=== PATIENT | female | born 1955 | race Caucasian/White ===

== ENCOUNTER 2024-10-01 09:34 | Outpatient (CLI) | payer MEDICARE, SELFPAY ==
[2024-10-01 10:26] LABS: Anion Gap 7 mmol/L (4-12); Blood Urea Nitrogen 15 mg/dL (7-17); Calcium 10.2 mg/dL (8.4-10.2); Carbon Dioxide 33 mmol/L (22-30); Chloride 100 mmol/L (98-107); Estimated Glomerular Filt Rate > 60; Glucose 100 mg/dL (65-110); Potassium 3.9 mmol/L (3.4-5.0); Sodium 140 mmol/L (137-145)
--- OUTSIDE RECORDS SUMMARY | 2024-10-01 10:42 | XMS_ITS | Data Portability ---
Author Organization [facility] Address [address] [place] [address] Assessment No assessment recorded. Plan of Treatment Reminders Order Date Submit Date Provider Last Modified By Organization Details Last Modified Time Details Appointments SURG Hysterosc opy 2024 11:00A Kayla PARK MD Not available Not available Not available SURG POST OP 2024 11:00A Kayla PARK MD Not available Not available Not available Lab None recorded. Referral None recorded. Procedures None recorded. Surgeries dilation and curettage with hysterosc opy (SURG) 2023 025 [facility], [address], [place], [address], 08/06/2024 11:33:44 Imaging None recorded. Medication Orders None recorded. Patient TargetsNo targets recorded. Patient InstructionsNo instructions recorded. Reason for Referral None Reported. Results Created Date Observation Date Name Description Value Unit Range Abnormal Flag Note LastModifiedBy Organization Detail LastModifiedTime 07/02/2007/02/2024 IMAGE GUIDE D PAP AND HPV REGAR DLESS image guided Pap, HPV regardless of Pap result SEE RESULT S BELOW CASE REPOR T: Cytol ogy Gynec ologi anisa Repor t Case: [id number] Autho speedy cerrato Provi matthew: Summer Montoya MD Colle cted: 07/02 1209 Order ing Locat ion: [place] Patho logy Recei keke: 07/03 0154 First Scree n: Seema Nagy ay, CT Speci men: Scree lui Pap - Image d, Cervi x STATE MENT OF ADEQU ACY: Satis facto ry for evalu ation Trans forma tion zone compo nent absen t ----- ----- ----- ----- ----- ----- ----- ----- ----- ----- ----- ----- ----- ----- ----- ----- ----- ---- FINAL DIAGN OSIS: Negat raquel for Intra epith elial Vadim larson or Kalyn kirkpatirck (NIL) . Elect avril antonio by Seema Nagy , CT on 07/12 at 0925 WIG COMBER ----- ----- ----- ----- ----- ----- ----- ----- ----- ----- ----- ----- ----- ----- ----- ----- ----- ---- HPV RESUL TS: HPV mRNA E6/E7 : No HPV mRNA Detec elif NOTE: This high risk HPV mRNA assay detec ts fourt een high- risk HPV types (16, 18, 31, 33, 35, 39, 45, 51, 52, 56, 58, 59, 66, 68) witho ut diffe renti ation . COMME NT: This speci men was revie wed by a Cytot echno logis t and/o r Patho logis t (as indic ated in this repor t) after evalu ation using the Thinp rep Imagi ng Syste m. CLINI ANISA INFOR MATIO N: Menst rual Statu s: LMP (if appli cable ): Clini anisa Histo ry/Pr eviou s Pap: Type of Neopl nacho (if appli cable ): Signi fican t Clini anisa Findi ngs: Other Histo ry: Hormo margarito (if appli cable ): PAP EDUCA ALBERT L NOTE: The Pap Test is a scree lui test with an inher ent false negat raquel rate. Liqui d-bas ed sampl ing november decre ase, but will not elimi perez, false negat raquel resul ts. A negat raquel resul t does not precl ude the prese nce and/o r devel opmen t of disea se, since the prese nce of abnor mal cells in the sampl e depen ds on the locat ion of the lesio n and sampl ing techn ique. Brit nued regul ar scree lui is the best metho d of cance r preve ntion . If repor elif cytol ogic findi ng do not corre late with physi anisa and/o r histo rical findi ngs, furth er inves tigat ion is recom archie d, as clini mickie lara nted. Not Available [facility] (Lab) [address], [place], [address], 07/12/2024 10:29:55 Result Notes None recorded. Procedures Surgical History Date Name Laterality Status Provider Name and Address Organization Details Recorded Time 07/02/20 24 Endometrial Biopsy completed ANNY PARK MD [address], [place], [address], [facility] 07/03/2024 16:08:37 07/18/19 23 Date of Last Mammogram completed [facility] 07/02/2024 11:34:14 07/18/19 23 Most Recent Bone Density completed [facility] 07/02/2024 11:34:40 07/18/19 17 procedure on shoulder completed [facility] 07/02/2024 11:25:17 02/19/19 85 section completed [facility] 07/02/2024 11:24:34 01/03/19 82 section completed [facility] 07/02/2024 11:24:28 08/12/18 79 section completed [facility] 07/02/2024 11:24:21 12/22/18 77 section completed Modestaakanksha Masten [facility] 07/02/2024 11:24:15 Carpal tunnel surgery completed Modesta Masten [facility] 07/02/2024 11:24:55 Imaging Results None recorded. Procedure Notes None recorded. Medical Equipment None Reported. Allergies Allergen ID Allergen Name Allergen Category Reaction Reaction Severity Criticality Documentation Date Start Date Code Code System Note Provider Name and Address Organization Details Recorded Time nickel environme nt Not available Not available Not available 07/02/2024 57415 29 RxNorm Modesta Gamino ahmet, [facility] 4 11:18:46 Medications Name Sig Start Date Stop Date Status Note LastModified by Organization Details LastModified Time tramadol 50 mg tablet 07/02 completed Not Available Not Available Not Available simvastatin 40 mg tablet TAKE 1 TABLET BY MOUTH DAILY active Not Available Not Available No t Available losartan 100 mg-hydrochl orothiazide 25 mg tablet TAKE 1 TABLET BY MOUTH DAILY active Not Available Not Available No t Available clotrimazol e-betametha sone 1 %-0.05 % topical cream APPLY TOPICALLY TO THE AFFECTED AND SURROUNDI NG AREAS TWICE DAILY IN THE MORNING AND IN THE EVENING 07/02 completed Not Available Not Available Not Available bupropion HCl XL 150 mg 24 hr tablet, extended release TAKE 1 TABLET BY MOUTH DAILY active Not Available Not Available No t Available naproxen active Not Available Not Avai lable Not Available Sudafed active Not Available Not Avail able Not Available Vitamin D3 active Not Available Not Av ailable Not Available Vitals Date Recorded Body weight Body mass index (BMI) Body height Systolic blood pressure Diastolic blood pressure Provider Name and Address Organization Details Last Updated DateTime 07/02/2024 197069.5 7 g 48.7 kg/m2 157.48 cm 146 mm[Hg] 84 mm[Hg] Modestaakanksha Masten [facility] 4 11:31:59 Social History Question Answer Notes LastModified by Organizat ion Details LastModified Time Tobacco Smoking Status Former Smoker [facility] 07/02/2024 11:35:14 Are You Blind Or Do You Have Difficulty Seeing? No [email or web address] Information n ot available 07/02/2024 In The 14 Days Before Symptom Onset, Have You Had Close Contact With A Laboratory-confirm ed COVID-19 While That Case Was Ill? No [email or web address] Information n ot available 07/02/2024 In The 14 Days Before Symptom Onset, Have You Had Close Contact With A Person Who Is Under Investigation For COVID-19 While That Person Was Ill? No [email or web address] Information not available 07/02/2024 Have You Been To An Area Known To Be High Risk For COVID-19? No [email or web address] Information not available 07/02/2024 Are You Deaf Or Do You Have Serious Difficulty Hearing? No [email or web address] Information not available 07/02/2024 Do You Use Your Seat Belt Or Car Seat Routinely? Yes [email or web address] Information not available 07/02/2024 Do You Have Smoke And Carbon Monoxide Detectors In Your Home? Yes [email or web address] Information not available 07/02/2024 Do You Use Any Illicit Or Recreational Drugs? No Information not available 07/02/2024 Do You Use Sunscreen Routinely? Yes [email or web address] Information not available 07/02/2024 Sex: Unknown Functional Status Question Answer Note LastModified by Organizat ion Details LastModified Time Do you have difficulty walking or climbing stairs? No [email or web address] Information not available 07/02/2024 Are you able to walk? YESWOREST [email or web address] Information not available 07/02/2024 Are you able to care for yourself? Yes [email or web address] Information not available 07/02/2024 Do you have difficulty dressing or bathing? No [email or web address] Information not available 07/02/2024 Mental Status None recorded. Family History Relationship Description Onset Age of this Age Resolved Age Notes LastModified by Organization Details LastModified Time Father Heart disease [email or web address] Not available 2023 11:22:18 Father Diabetes mellitus Not available 2023 11:22:27 Father Hypercholest erolemia [email or web address] Not available 2023 11:22:46 Father Hypertensive disorder [email or web address] Not available 2023 11:23:06 Father Malignant tumor of lung [email or web address] Not available 2023 11:23:25 Mother Hypercholest erolemia [email or web address] Not available 2023 11:22:46 Mother Hypertensive disorder [email or web address] Not available 2023 11:23:06 Brother Hypertensive disorder [email or web address] Not available 2023 11:23:06 Medical History No medical history recorded. Gynecological History Statement/Question Response Abnormal Pap N Date of Last Mammogram 07/18/2022 Most Recent Bone Density 07/18/2022 Date of DEXA bone scan 07/18/2022 STIs/STDs N Age of first menstrual cycle 13 HPV Vaccine N Date of Last Pap Smear Sexual Problems? N Current Control Method Menopause LMP Unknown Obstetrics History GPAL:G 4 P 4 0 0 4 Type Value Full Term 4 Living 4 Total 4 Past Encounters Encounter ID Performer Location Encounter Start Date Encounter Closed Date Diagnosis/Indication Diagnosis SNOMED-CT Code Diagnosis ICD10 Code Diagnosis Note [id number] ANNY PARK MD [place] [address] [address] 07/02/2024 11:06:52 07/02/2024 12:29:58 Postmenopausal bleeding 52968542 N95.0 - patient reports 3-4 months of cyclic postmenopa usal bleeding From to April; no bleeding since April- outside US performed which demonstrat ed thickened endometriu m at 6mm- recommend EMB; r/b discussed with patient who would like to proceed with EMB today- unable to complete EMB due to poor visualizat ion of cervical os- pap smear collected today- will follow up on results as available- will schedule hysterosco py and D&C for endometria l sampling- discussed risks of surgery, including bleeding, infection, and injury to adjacent structures Health Concerns Section Related Observation LastModified by Organization Detai ls LastModified Time None Recorded Concern Status LastModified by Organization Details LastModified Time None Recorded Advance Directives Directive None Recorded Payers Encounter Date Sequence Insurance Name Policy Number Policy Chambers Covered Member ID Chambers Member ID Guarantor Name 07/02/2024 1 [facility] (MEDICARE REPLACEMENT/A DVANTAGE - HMO) [id number] Adriana Partida [id number] Adriana Partida Notes Date Note Type Note Provider Name and Address Organization Details Recorded Time 07/02/2024 text/html Patient presents to discuss postmenopausal spotting. She reports starting over the summer, she would have monthly spotting episodes lasting 2-3 days from December-April. No bleeding since April. She reports menopause prior to age 50. No HRT, blood thinners or other new medication. No family hx of cancer. She had an outside US that demonstrated overall normal appearing uterus and ovaries aside from thickened endometrial lining at 6mm. ANNY PARK MD [address], [place], [address], [facility] 07/03/2024 16:08:46 OBGyn Episode Ob Episode Information Episode Created Date Number of Fetuses Patient Bloodtype Patient rh Status Prepregnancy Weight lbs Domestic Partner Domestic Partner Phone Father Name Sponge Fisherman Status 07/02/20 24 1 CLOSED Fetus Data First Name Last Name Admitted to NICU Weight (g) Sex Living Outcome Pediatric Complications Fetus ID Race Codes Race Delivery Type 3628.73 6 M Full Term [id number] Primary Mateusz Calculation Initial Mateusz Date Initial Exam Date Initial Exam Provider Initial Ultrasound Date Last Menstrual Period Date Ultra Sound Weeks Gestation 0 Eighteen To Twenty Week Mateusz Update Ultra Sound Date Fundal Height At Umbil Quickening Date Ultra Sound Latest Weeks Gestation Final Mateusz Confirmed By Final Mateusz Confirmed Date Final Mateusz Date Ultra Sound Latest Days Gestation 0 0 Menstrual History Last Menstrual Date Menses Monthly On Bcp Conception Prior Menses Frequency Hcg Plus Date Menarche Onset Age Delivery Information Delivery Date Delivery Type Labor Anesthesia Weeks Gestation Incision Type Labor Labor Length Hrs Delivered By Post Complications Tubal Sterilization Discharge Date Comments 9 Discharge Information Feeding Method Contraceptive Method Maternal HG B and HCT Levels Ob Episode Information Episode Created Date Number of Fetuses Patient Bloodtype Patient rh Status Prepregnancy Weight lbs Domestic Partner Domestic Partner Phone Father Name Sponge Fisherman Status 07/02/20 24 1 CLOSED Fetus Data First Name Last Name Admitted to NICU Weight (g) Sex Living Outcome Pediatric Complications Fetus ID Race Codes Race Delivery Type 3175.14 4 M Full Term [id number] Primary Mateusz Calculation Initial Mateusz Date Initial Exam Date Initial Exam Provider Initial Ultrasound Date Last Menstrual Period Date Ultra Sound Weeks Gestation 0 Eighteen To Twenty Week Mateusz Update Ultra Sound Date Fundal Height At Umbil Quickening Date Ultra Sound Latest Weeks Gestation Final Mateusz Confirmed By Final Mateusz Confirmed Date Final Mateusz Date Ultra Sound Latest Days Gestation 0 0 Menstrual History Last Menstrual Date Menses Monthly On Bcp Conception Prior Menses Frequency Hcg Plus Date Menarche Onset Age Delivery Information Delivery Date Delivery Type Labor Anesthesia Weeks Gestation Incision Type Labor Labor Length Hrs Delivered By Post Complications Tubal Sterilization Discharge Date Comments 7 Discharge Information Feeding Method Contraceptive Method Maternal HG B and HCT Levels Ob Episode Information Episode Created Date Number of Fetuses Patient Bloodtype Patient rh Status Prepregnancy Weight lbs Domestic Partner Domestic Partner Phone Father Name Sponge Fisherman Status 07/02/20 24 1 CLOSED Fetus Data First Name Last Name Admitted to NICU Weight (g) Sex Living Outcome Pediatric Complications Fetus ID Race Codes Race Delivery Type 3175.14 4 M Full Term [id number] Primary Mateusz Calculation Initial Mateusz Date Initial Exam Date Initial Exam Provider Initial Ultrasound Date Last Menstrual Period Date Ultra Sound Weeks Gestation 0 Eighteen To Twenty Week Mateusz Update Ultra Sound Date Fundal Height At Umbil Quickening Date Ultra Sound Latest Weeks Gestation Final Mateusz Confirmed By Final Mateusz Confirmed Date Final Mateusz Date Ultra Sound Latest Days Gestation 0 0 Menstrual History Last Menstrual Date Menses Monthly On Bcp Conception Prior Menses Frequency Hcg Plus Date Menarche Onset Age Delivery Information Delivery Date Delivery Type Labor Anesthesia Weeks Gestation Incision Type Labor Labor Length Hrs Delivered By Post Complications Tubal Sterilization Discharge Date Comments 2 Discharge Information Feeding Method Contraceptive Method Maternal HG B and HCT Levels Ob Episode Information Episode Created Date Number of Fetuses Patient Bloodtype Patient rh Status Prepregnancy Weight lbs Domestic Partner Domestic Partner Phone Father Name Sponge Fisherman Status 07/02/20 24 1 CLOSED Fetus Data First Name Last Name Admitted to NICU Weight (g) Sex Living Outcome Pediatric Complications Fetus ID Race Codes Race Delivery Type 3628.73 6 M Full Term [id number] Primary Mateusz Calculation Initial Mateusz Date Initial Exam Date Initial Exam Provider Initial Ultrasound Date Last Menstrual Period Date Ultra Sound Weeks Gestation 0 Eighteen To Twenty Week Mateusz Update Ultra Sound Date Fundal Height At Umbil Quickening Date Ultra Sound Latest Weeks Gestation Final Mateusz Confirmed By Final Mateusz Confirmed Date Final Mateusz Date Ultra Sound Latest Days Gestation 0 0 Menstrual History Last Menstrual Date Menses Monthly On Bcp Conception Prior Menses Frequency Hcg Plus Date Menarche Onset Age Delivery Information Delivery Date Delivery Type Labor Anesthesia Weeks Gestation Incision Type Labor Labor Length Hrs Delivered By Post Complications Tubal Sterilization Discharge Date Comments 5 Discharge Information Feeding Method Contraceptive Method Maternal HG B and HCT Levels
--- OUTSIDE RECORDS SUMMARY | 2024-10-01 10:42 | XMS_ITS | Clinical Summary ---
Author Organization [facility] Address [address] [place] [address] Care Team Providers Care Development Trainer Name Role Phone Fernando Walker MD Primary Care Provider [phone] Allergies Active Allergy Reactions Criticality Noted Date Comments Nickel Redness Low 10/20/2016 redness Nsaids (Non-Steroidal Anti-Inflammatory Drug) Stomach upset Low 10/20/2016 Stomach/GI Upset Medications simvastatin (ZOCOR) 40 mg tablet Take 1 tablet (40 mg total) by mouth daily 1 Active losartan-hydroc hlorothiazide (HYZAAR) 100-25 mg per tablet Take 1 tablet by mouth daily 1 Active buPROPion XL (WELLBUTRIN XL) 150 mg 24 hr tablet Take 1 tablet (150 mg total) by mouth daily 1 Active loratadine 10 mg capsule Take 10 mg by mouth daily Active pseudoephedrine ER (SUDAFED) 120 mg 12 hr tabletIndicatio ns:Nasal Congestion Take 1 tablet (120 mg total) by mouth every 12 (twelve) hours Active melatonin 10 mg tablet Take 1 tablet (10 mg total) by mouth nightly Active HYDROcodone-loc taminophen (NORCO) 5-325 mg per tablet Take 1-2 tablets by mouth every 6 (six) hours as needed 1 Active vit C/E/zinc ox/feng/lut/shai x (ICAPS AREDS2 ORAL) Take by mouth 2 (two) times a day Active clotrimazole-be tamethasone (LOTRISONE) cream APPLY TOPICALLY TO THE AFFECTED AND SURROUNDING AREAS TWICE DAILY IN THE MORNING AND IN THE EVENING 4 Active calcium carbonate-vitam in D3 2,500 mg (1,000 mg elemental)-800 unit tablet Take by mouth Acti ve cholecalciferol (VITAMIN D-3) 2000 unit capsule 1 capsule (2,000 Units total) Active traMADoL (ULTRAM) 50 mg tablet Take 1 tablet (50 mg total) by mouth every 6 (six) hours as needed for pain 15 tablet 4 Active Active Problems Problem Noted Date Diagnosed Date Superficial incisional infection of surgical sit e 07/13/2024 Right hand pain 06/13/2024 Trigger finger of right thumb 06/13/2024 Arthritis of carpometacarpal (CMC) joint of righ t thumb 06/13/2024 Ganglion cyst 06/13/2024 Trigger thumb of right hand 06/13/2024 Primary osteoarthritis of fi rst carpometacarpal joint of right hand 06/13/2024 KARI (obstructive sleep apnea) 11/04/2020 Assessment & Plan (05/05/2023 11:20 AM CDT): Patient continue to wear CPAP at 12 cm water pressure while sleeping. Her DME is [facility]. Assessment & Plan (05/06/2022 11:06 AM CDT): Patient will continue with CPAP therapy at 12 cm water pressure. Received order for supplies. D[facility] Assessment & Plan (02/17/2021 1:19 PM CDT): Patient continue to wear her CPAP at 12 cm water pressure while sleeping. Her DME is [facility]. Assessment & Plan (11/04/2020 2:12 PM CDT): The patient was benefiting and compliant with the CPAP unit at 12 cm water pressure. Her DME is [facility]. I will try ordering a new CPAP unit for her set at 12 cm water pressure with new supplies. Per Medicare guidelines, she may require a new nocturnal polysomnogram with a split night protocol if necessary and no MSLT. She will follow-up with me in 3 months. Status post total shoulder arthroplasty, left Encounters Date Type Department Care Team Description 09/05/2024 8:57 AM DIRECTOR OF PUBLICATIONS - 09/05/2024 11:59 PM DIRECTOR OF PUBLICATIONS Hospital Encounter [facility] Medical Office Bl 1 Breast [facility] [address] [place] [address] [address] [place] [address] Encounter for screening mammogram for malignant neoplasm of breast Discharge Disposition: Discharge to home or self care 08/03/2024 8:45 AM DIRECTOR OF PUBLICATIONS Office Visit [facility] Medical [facility] Hand Surgery [address] [place] [phone] Reece Staley MD Superficial incisional infection of surgical site (Primary Dx) 07/16/2024 7:00 AM DIRECTOR OF PUBLICATIONS Office Visit [facility] Hand Surgery [address] [place] [phone] Reece Staley MD Superficial incisional infection of surgical site (Primary Dx) 07/13/2024 6:45 AM DIRECTOR OF PUBLICATIONS Office Visit [facility] Hand Surgery [address] [place] [phone] Reece Staley MD Trigger finger of right thumb (Primary Dx); Ganglion cyst 07/09/2024 11:00 AM DIRECTOR OF PUBLICATIONS Office Visit [facility] Hand Surgery [address] [place] [phone] Reece Staley MD Ganglion cyst (Primary Dx); Trigger thumb of right hand from Last 3 Months Surgical History Surgery Date Site/Laterality Comments REVERSE TOTAL SHOULDER ARTHROPLASTY 07/18/2016 - 2017 Left STAPEDECTOMY CARPAL TUNNEL RELEASE 12/16/2020 - 01/14/2021 Bilateral SECTION x4 HAND SURGERY 06/28/2024 Right palmar mass exc, trigger release thumb Medical History Medical History Date Comments Sleep apnea, obstructive Hypertension Hyperlipidemia Family History Medical History Relation Name Comments Cancer Father Emphysema Mother Relation Name Status Comments Father Mother Social History Tobacco Use Types Packs/Day Years Used Date Smoking Tobacco: Former Cigarettes Smokeless Tobacco: Never Tobacco Cessation:Counseling Given: Not Answered Comments:former light smoker AUDIT-C Answer Date Recorded Q1: How often do you have a drink containing alc ohol? 2-4 times a month 06/28/2024 Q2: How many drinks containi ng alcohol do you have on a typical day when you are drinking? 1 or 2 06/28/2024 Q3: How often do you have si x or more drinks on one occasion? Never 06/28/2024 Personal Safety Answer Date Recorded Have you ever been in or are you currently in a harmful physical or emotional relationship or is someone making you feel afraid or unsafe? Denies 06/28/2024 Comments No Sex and Gender Information Value Date Recorded Sex Assigned at Not on file Legal Sex Female 3:01 PM DIRECTOR OF PUBLICATIONS Gender Identity Not on file Sexual Orientation Not on file Obstetrics History Para Term AB IAB SAB Ectopic Multiple Livin g Live Births 4 4 4 Date Outcome GA Total Labor Labor/2nd/3rd Weight Sex Type Anes PTL Cata A1 A5 Name Clin Term Term Term Term Last Filed Vital Signs Vital Sign Reading Time Taken Comments Blood Pressure 124/58 06/28/2024 9:35 AM DIRECTOR OF PUBLICATIONS Pulse 87 06/28/2024 9:35 AM DIRECTOR OF PUBLICATIONS Temperature 36.8 C (98.2 F) 06/28/2024 9:05 AM DIRECTOR OF PUBLICATIONS Respiratory Rate 16 06/28/2024 9:35 AM DIRECTOR OF PUBLICATIONS Oxygen Saturation 95% 06/28/2024 9:35 AM DIRECTOR OF PUBLICATIONS Inhaled Oxygen Concentration - - Weight 117.9 kg (260 lb) 08/03/2024 8:49 AM DIRECTOR OF PUBLICATIONS Height 157.5 cm (5' 2 ) 08/03/2024 8:49 AM DIRECTOR OF PUBLICATIONS Body Mass Index 47.55 08/03/2024 8:49 AM DIRECTOR OF PUBLICATIONS Plan of Treatment Health Maintenance Due Date Last Done Comments Colon Cancer Screening-Colonoscopy 1955 Depression Screening 1955 Hepatitis C Screening 1955 DTaP/Tdap/Td Vaccine (1 - Tdap) 1966 Hepatitis B Screening 1973 Zoster Vaccine (2 of 3) 09/01/2017 07/07/2017 Well Visit 65+ 2020 Pneumococcal vaccine 65+ (2 of 2 - PCV) 11/25/2021 11/25/2020 Covid-19 Vaccine (3 - 2023-2 5 season) 2024 09/13/2020, 08/23/2020 Influenza Vaccine (#1) 2024 0, 03/28/2019, 04/24/2018, Additional history exists Fall Risk Assessment 06/28/2025 06/28/2024 Osteoporosis Screening-Bone Density Scan 07/05/2025 07/05/2023 Breast Cancer Screening-Mammogram 09/05/2025 09/05/2024, 07/21/2023, 05/11/2022, Additional history exists Medical Devices Implanted Type Area Artificial Intelligence Specialist Device Identifier Shelf Expiration Date Model / Serial / Lot Shoulder Replacement Left: Shoulder Lap Band Abdomen Procedures Procedure Name Priority Date/Time Associated Diagnosis Comments SCREENING MAMMOGRAM BILATERAL W BEAU Schedule Routine, Read Routine (OP Routine) 09/05/2024 9:14 AM DIRECTOR OF PUBLICATIONS Encounter for screening mammogram for malignant neoplasm of breast DEXA AXIAL SKELETON BONE DENSITY 1 OR MORE SITES Schedule Routine, Read Routine (OP Routine) 07/05/2023 10:54 AM DIRECTOR OF PUBLICATIONS Asymptomatic menopausal state from Last 3 Months or Most Recently Relevant to Health Maintenance Results * Screening Mammogram Bilateral W Beau (09/05/2024 9:14 AM DIRECTOR OF PUBLICATIONS) Anatomical Region Laterality Modality Breast Bilateral Mammography Impressions 09/05/2024 9:27 AM DIRECTOR OF PUBLICATIONS BI-RADS ATLAS category (overall): 1 - Negative There is no mammographic evidence of malignancy. A 1 year screening mammogram is recommended. The patient has been or will be contacted. We recommend annual screening mammography for women at average risk of breast cancer beginning at age 40, based on guidelines of the [employer] [place] [employer] (ACR Practice Parameter for the Performance of Screening and Diagnostic Mammography) and [place] [employer] [place] [employer]. For women with and elevated risk of breast cancer, please refer to the ACR Practice Parameter for specific screening recommendations. The patient will be entered into a reminder system with a target due date of 1 year for her next screening exam. Narrative 09/05/2024 9:27 AM DIRECTOR OF PUBLICATIONS Screening Mammogram Bilateral W Beau: 09/05/24 The study was acquired using full field digital technology and interpreted from soft copy. 2D digital mammographic views, as well as 3D digital tomosynthesis were performed in the CC and MLO projections. CLINICAL: Encounter for screening mammogram for malignant neoplasm of breast. No relevant medical history has been documented for this patient. No known family history of breast cancer. COMPARISONS: 07/21/2023 Screening Mammogram Bilateral W Beau 05/11/2022 Screening Mammogram Bilateral W Beau 03/13/2021 Screening Mammogram Bilateral W Beau BREAST TISSUE: There are scattered areas of fibroglandular density. FINDINGS: There is no new suspicious finding in either breast on mammogram. us Fernando Walker MD IM MAMMO PROCEDURES Ana l Result * Dexa Axial Skeleton Bone Density 1 or 2 Site (07/05/2023 10:54 AM DIRECTOR OF PUBLICATIONS) Anatomical Region Laterality Modality Body N/A Mammography 07/05/2023 5:40 PM DIRECTOR OF PUBLICATIONS Narrative 07/05/2023 5:41 PM DIRECTOR OF PUBLICATIONS EXAM DESCRIPTION: DEXA AXIAL SKELETON BONE DENSITY 1 OR MORE SITES REASON FOR STUDY: 67 y/o year old F with given history of: DEXA Postmenopausal Artificial Intelligence Specialist/Model: [employer] (S/N [id number]) CLINICAL INFORMATION: Current height: 60 inches Maximum height: 62 inches Weight: 248 pounds Risk factors: Postmenopausal COMPARISON: None available FINDINGS: AP LUMBAR SPINE L1-L4: Total BMD is 0.911 g/cm2 T-score is -1.3 LEFT HIP: Total BMD is 0.901 g/cm2 T-score is -0.3 Femoral neck BMD is 0.675 g/cm2 T-score is -1.6 FRAX: 10 year risk for a major osteoporotic fracture is 7.9 %, 10 year risk for a hip fracture is 0.9 % IMPRESSION: Low Bone Mass. REFERENCE: Bone mineral density: Normal (T-score above or = -1.0) Low bone mass (T-score between -1.0 and -2.5) replaces the previously used term osteopenia Osteoporosis (T-score = or below -2.5) Medical evaluation for secondary causes of low bone mineral density may be appropriate. FRAX is a World Health Organization validated fracture risk assessment tool that calculates a person's 10 year probability of a major osteoporosis related fracture and hip fracture. According to the National Osteoporosis Foundation guidelines, postmenopausal women and men age 50 or older with low bone mass and a 10 year probability of a major osteoporosis related fracture = or greater than 20% or a 10 year probability of a hip fracture = or greater than 3% should be considered for treatment. For further information, including treatment recommendations, please refer to the 2019 ISCD Official Positions (http://www.iscd.org) and the NOF's Clinician's Guide to Prevention and Treatment of Osteoporosis (http://www.nof.org/professionals/clinical-guidelines) THIS IS AN ELECTRONICALLY VERIFIED FINAL REPORT 07/05/2023 5:41 PM - Electronically signed by Dusty Ponce M.D. MF: [id number] Report ID: [id number] Reading Location: [address] Note Dusty Ponce MD - 07/05/2023 EXAM DESCRIPTION: DEXA AXIAL SKELETON BONE DENSITY 1 OR MORE SITES REASON FOR STUDY: 67 y/o year old F with given history of: DEXA Postmenopausal Artificial Intelligence Specialist/Model: [employer] (S/N [id number]) CLINICAL INFORMATION: Current height: 60 inches Maximum height: 62 inches Weight: 248 pounds Risk factors: Postmenopausal COMPARISON: None available FINDINGS: AP LUMBAR SPINE L1-L4: Total BMD is 0.911 g/cm2 T-score is -1.3 LEFT HIP: Total BMD is 0.901 g/cm2 T-score is -0.3 Femoral neck BMD is 0.675 g/cm2 T-score is -1.6 FRAX: 10 year risk for a major osteoporotic fracture is 7.9 %, 10 year risk fora hip fracture is 0.9 % IMPRESSION: Low Bone Mass. REFERENCE: Bone mineral density: Normal (T-score above or = -1.0) Low bone mass (T-score between -1.0 and -2.5) replaces thepreviously used term osteopenia Osteoporosis (T-score = or below -2.5) Medical evaluation for secondary causes of low bone mineral density may be appropriate. FRAX is a World Health Organization validated fracture risk assessmenttool that calculates a person's 10 year probability of a major osteoporosisrelated fracture and hip fracture. According to the National OsteoporosisFoundation guidelines, postmenopausal women and men age 50 or older with low bonemass and a 10 year probability of a major osteoporosis related fracture = or greater than 20% or a 10 year probability of a hip fracture = or greaterthan 3% should be considered for treatment. For further information, including treatment recommendations, please referto the 2019 ISCD Official Positions (http://www.iscd.org) and the NOF's Clinician's Guide to Prevention and Treatment of Osteoporosis (http://www.nof.org/professionals/clinical-guidelines) THIS IS AN ELECTRONICALLY VERIFIED FINAL REPORT 07/05/2023 5:41 PM - Electronically signed by Dusty Ponce M.D. MF: NNAMDI Report ID: [id number] Reading Location: [place] [address] Fernando Walker MD IMG DXA PROCEDURES Final Result from Last 3 Months or Most Recently Relevant to Health Maintenance Insurance [facility] Address: [facility] [address] [place] [address] [facility] Address[facility] [address] [place] [address] [place] [address] Care Teams Development Trainer Relationship Specialty Start Date End Date Fernando Walker MD [address] [address] PCP - General 09/25/18
--- OUTSIDE RECORDS SUMMARY | 2024-10-01 10:42 | XMS_ITS | Clinical Summary ---
Author Organization [facility] Care Team Providers Care Director Drug Name Role Phone Unavailable Primary Care Provider Unavailabl e Social History Tobacco Use Types Packs/Day Years Used Date Smoking Tobacco: Never Assessed Comments Unknown Sex and Gender Information Value Date Recorded Sex Assigned at Not on file Legal Sex Female 7:05 PM CDT Gender Identity Not on file Sexual Orientation Not on file Plan of Treatment Health Maintenance Due Date Last Done Comments DEXA Bone Density 1955 Hepatitis C Virus (HCV) Screening 1955 TdaP Immunization 1955 Colonoscopy 2000 Colorectal Cancer Screening 2000 Cologuard 2005 Immunochemical Fecal Occult Blood 2005 Mammogram 2005 Zoster Immunization (2 of 3) 09/01/2017 07/07/2017 Pneumococcal Immunization (5 0+ years) (2 of 2 - PCV) 11/25/2021 11/25/2020 Influenza Immunization (#1) 03/18/202401/2020, 03/28/2019, 04/24/2018 SARS-COV-2 Immunization (3 - season) 2024 09/13/2020, 08/23/2020 Respiratory Syncytial Virus (RSV) Immunization (Adult) (1 - 1-dose 75+ series) 2030 Hepatitis B Immunization Aged Out No longer eligible based on patient's age to complete this topic Meningococcal Immunization (ACWY) Aged Out No longer eligible b ased on patient's age to complete this topic Rotavirus Immunization Aged Out No lo nger eligible based on patient's age to complete this topic
--- OUTSIDE RECORDS SUMMARY | 2024-10-01 10:42 | XMS_ITS | Referral Summary ---
Author Organization [facility] Address [address] [place] [address] Care Team Providers Care Straw Hat Brim Cutter Operator Name Role Phone Fernando Walker MD Primary Care Provider [phone] Encounters Date Type Department Care Team Description 09/05/2024 8:57 AM WELDER G[employer]OM[employer] - 09/05/2024 11:59 PM WELDER G[employer]OM[employer] Hospital Encounter [facility] Medical Office Bl [address] [address] Encounter for screening mammogram for malignant neoplasm of breast Discharge Disposition: Discharge to home or self care 08/03/2024 8:45 AM WELDER GAS AUTOMATIC Office Visit [facility] Hand Surgery [address] [place] [phone] Reece Staley MD Superficial incisional infection of surgical site (Primary Dx) 07/16/2024 7:00 AM WELDER GAS AUTOMATIC Office Visit [facility] Hand Surgery [address] [place] [phone] Reece Staley MD Superficial incisional infection of surgical site (Primary Dx) 07/13/2024 6:45 AM WELDER G[employer] AUTOMATIC Office Visit [facility] Hand Surgery [address] [place] [phone] Reece Staley MD Trigger finger of right thumb (Primary Dx); Ganglion cyst 07/09/2024 11:00 AM WELDER G[employer] AUTOMATIC Office Visit [facility] Hand Surgery [address] [place] [phone] Reece Staley MD Ganglion cyst (Primary Dx); Trigger thumb of right hand from Last 3 Months Allergies Active Allergy Reactions Criticality Noted Date [...] water pressure while sleeping. Her DME is [facility]. Assessment & Plan (05/06/2022 11:06 AM CDT): Patient will continue with CPAP therapy at 12 cm water pressure. Received order for supplies. DME [facility] Assessment & Plan (02/17/2021 1:19 PM CDT): Patient continue to wear her CPAP at 12 cm water pressure while sleeping. Her DME is [facility]. Assessment & Plan (11/04/2020 2:12 PM CDT): The patient was benefiting and compliant with the CPAP unit at 12 cm water pressure. Her DME is [facility]. I will try ordering a new CPAP unit for her set at 12 cm water pressure with new supplies. Per Medicare guidelines, she may require a new nocturnal polysomnogram with a split night protocol if necessary and no MSLT. She will follow-up with me in 3 months. Status post total shoulder arthroplasty, left Social History Tobacco Use Types Packs/Day Years [...] on file Legal Sex Female 3:01 PM WELDER G[employer] AUTOMATIC Gender Identity Not on file Sexual Orientation Not on file Last Filed Vital Signs Vital Sign Reading Time Taken Comments Blood Pressure 124/58 06/28/2024 9:35 AM WELDER G[employer] AUTOMATIC Pulse 87 06/28/2024 9:35 AM WELDER GAS AUTOMATIC Temperature 36.8 C (98.2 F) 06/28/2024 9:05 AM WELDER GAS AUTOMATIC Respiratory Rate 16 06/28/2024 9:35 AM WELDER GAS AUTOMATIC Oxygen Saturation 95% 06/28/2024 9:35 AM W[employer] G[employer]OMATIC Inhaled Oxygen Concentration - - Weight 117.9 kg (260 lb) 08/03/2024 8:49 AM WELDER GAS AUTOMATIC Height 157.5 cm (5' 2 ) 08/03/2024 8:49 AM WELDER GAS AUTOMATIC Body Mass Index 47.55 08/03/2024 8:49 AM WELDER GAS AUTOMATIC Plan of Treatment Not on file Medical Devices Implanted Type Area Diagrammer And Seamer Device Identifier Shelf Expiration Date Model / Serial / Lot Shoulder Replacement Left: Shoulder Lap Band Abdomen Procedures Procedure Name Priority Date/Time Associated Diagnosis Comments SCREENING MAMMOGRAM BILATERAL W LAURA Schedule Routine, Read Routine (OP Routine) 09/05/2024 9:14 AM W[employer]DER G[employer]OMAT[employer] Encounter for screening mammogram for malignant neoplasm of breast DEXA AXIAL SKELETON BONE DENSITY 1 OR MORE SITES Schedule Routine, Read Routine (OP Routine) 07/05/2023 10:54 AM W[employer]OMAT[employer] Asymptomatic menopausal state from Last 3 Months or Most Recently Relevant to Health Maintenance Results * Screening Mammogram Bilateral W Laura (09/05/2024 9:14 AM WELDER GAS AUTOMATIC) Anatomical Region Laterality Modality Breast Bilateral Mammography Impressions 09/05/2024 9:27 AM WELDER GAS AUTOMATIC BI-RADS ATLAS category (overall): 1 - Negative There is no mammographic evidence of malignancy. A 1 year screening mammogram is recommended. The patient has been or will be contacted. We recommend annual screening mammography for women at average risk of breast cancer beginning at age 40, based on guidelines of the [place] [employer] (ACR Practice Parameter for the Performance of Screening and Diagnostic Mammography) and [place] [employer]. For women with and elevated risk of breast cancer, please refer to the ACR Practice Parameter for specific screening recommendations. The patient will be entered into a reminder system with a target due date of 1 year for her next screening exam. Narrative 09/05/2024 9:27 AM WELDER GAS AUTOMATIC Screening Mammogram Bilateral W Laura: 09/05/24 The study was acquired using full [...] cancer. COMPARISONS: 07/21/2023 Screening Mammogram Bilateral W Laura 05/11/2022 Screening Mammogram Bilateral W Laura 03/13/2021 Screening Mammogram Bilateral W Laura BREAST TISSUE: There are scattered areas of fibroglandular density. FINDINGS: There is no new suspicious finding in either breast on mammogram. Fernando Walker MD IMG MAMMO PROCEDURES Ana l Result * Dexa Axial Skeleton Bone Density 1 or 2 Site (07/05/2023 10:54 AM WELDER G[employer]OMATIC) Anatomical Region Laterality Modality Body N/A Mammography 07/05/2023 5:40 PM W[employer]DER [employer]OMATIC Narrative 07/05/2023 5:41 PM [employer]DER [employer]OM[employer] EXAM DESCRIPTION: DEXA AXIAL SKELETON BONE DENSITY 1 OR MORE SITES REASON FOR STUDY: 67 y/o year old F with given history of: DEXA Postmenopausal Diagrammer And Seamer/Model: [employer] (S/N [id number]) CLINICAL INFORMATION: Current height: 60 inches Maximum [...] Dusty Ponce M.D. MF: NNAMDI Report ID: [id number] Reading Location: [place] [address] Procedure Note Dusty Ponce MD - 07/05/2023 EXAM DESCRIPTION: DEXA AXIAL SKELETON BONE DENSITY 1 OR MORE SITES REASON FOR STUDY: 67 y/o year old F with given history of: DEXA Postmenopausal Diagrammer And Seamer/Model: [employer] A (S/N [id number]) CLINICAL INFORMATION: Current height: 60 inches Maximum [...] Dusty Ponce M.D. MF: NNAMDI Report ID: [id number] Reading Location: [place] [address] Fernando Walker MD IMG DXA PROCEDURES Final Result from Last 3 Months or Most Recently Relevant to Health Maintenance Insurance [employer] Care Teams Straw Hat Brim Cutter Operator Relationship Specialty Start Date End Date Fernando Walker MD [address] [address] PCP - General 09/25/18
--- OUTSIDE RECORDS SUMMARY | 2024-10-01 10:43 | XMS_ITS | Clinical Summary ---
Author Organization [facility] Address [address] [place] [address] Care Team Providers Care Lodge Attendant Name Role Phone Fernando Walker MD Primary Care Provider [phone] Allergies Active Allergy Reactions Criticality Noted Date Comments Nickel Redness Low 11/04/2020 Medications buPROPion XL 150 MG 24 hr tablet Take 150 mg by mouth daily. 1 Active Loratadine 10 MG Cap Active losartan-hydroC HLOROthiazide 100-25 MG tablet Take 1 tablet by mouth daily. 4 Active Melatonin 10 MG Tab Active pseudoephedrine ER 120 MG 12 hr tablet Take 120 mg by mouth every 12 (twelve) hours. Active simvastatin 40 MG tablet Take 40 mg by mouth daily. 4 Active NON FORMULARY Needs antibiotic prior to dental procedures r/t shoulder replacment surgery Active HYDROcodone-loc taminophen 5-325 MG tabletIndicatio ns:Acute Pain < 7 Day Supply Take 1-2 tablets by mouth every 6 (six) hours as needed for Pain. Indications: Acute Pain < 7 Day Supply For Moderate Pain 20 tablet 1 Active Active Problems No known active problems Immunizations Name Administration Dates Next Due PFIZER COVID-19 (ORIGINAL FO RMULATION, PURPLE CAP) mRNA, LNP-S, PF, 30 MCG/0.3 ML DOSE 09/13/2020,08/23/2020 Family History Medical History Relation Comments No Known Problems Brother Cancer Father Diabetes Father No Known Problems Maternal Aunt Emphysema Mother Hypertension Mother No Known Problems Sister Relation Status Comments Brother Father (Age 84) Maternal Aunt Mother (Age 75) Sister Son 1 Alive Son 2 Alive Son 3 Alive Son 4 Alive Social History Tobacco Use Types Packs/Day Years Used Date Smoking Tobacco: Former Cigarettes 0.5 10 2 004 - 2014 Smokeless Tobacco: Never Tobacco Cessation:Counseling Given: No Comments:quit Alcohol Use Standard Drinks/Week Comments Yes 2 (1 standard drink = 0.6 oz pur e alcohol) Comments No Sex and Gender Information Value Date Recorded Sex Assigned at Not on file Legal Sex Female 8:17 PM CDT Gender Identity Not on file Sexual Orientation Not on file Last Filed Vital Signs Vital Sign Reading Time Taken Comments Blood Pressure 127/77 02/12/2021 1:26 PM CDT Pulse 90 02/12/2021 1:26 PM CDT Temperature 36.1 C (96.9 F) 02/12/2021 1:26 PM CDT Respiratory Rate 18 01/02/2021 10:38 AM CDT Oxygen Saturation 96% 02/12/2021 1:26 PM CDT Inhaled Oxygen Concentration - - Weight 103.4 kg (228 lb) 02/12/2021 1:26 PM CDT Height 160 cm (5' 3 ) 02/12/2021 1:26 PM CDT Body Mass Index 40.39 02/12/2021 1:26 PM CDT Plan of Treatment Health Maintenance Due Date Last Done Comments Colorectal Cancer Screening Colonoscopy (10 Years) 1955 Hepatitis C 1973 DTaP, Tdap and Td Vaccines ( 1 - Tdap) 1974 Zoster Vaccines (2 of 3) 09/01/2017 07/07/2017 Annual Medicare Wellness Visit 2020 Pneumococcal Vaccine: 65+ Years (1 of 1 - PCV) 2020 COVID-19 Vaccine (3 - 2023-2 5 season) 2024 09/13/2020, 08/23/2020 Influenza Adult (#1) 2024 Mammogram Screening 07/21/2025 07/21/2023 RSV Immunization or 60+ Years (1 - 1-dose 75+ series) 2030 Dexa Scan (General) Completed 07/05/2023, 07/05/2023 Meningococcal B Vaccine Aged Out No l onger eligible based on patient's age to complete this topic Meningococcal Vaccine Aged Out No jeannie karen eligible based on patient's age to complete this topic RSV Immunizations Under 20 Months Aged Out No longer eligible b ased on patient's age to complete this topic Insurance Care Teams Lodge Attendant Relationship Specialty Start Date End Date Fernando Walker MD [address] [facility] [address] [place] [address] PCP - General FAMILY PRACTICE 10/10/20
--- OUTSIDE RECORDS SUMMARY | 2024-10-01 10:43 | XMS_ITS | Encounter Summary ---
Author Organization [facility] Care Team Providers Care Curator Of Manuscripts Name Role Phone Fernando Walker MD Primary Care Provider [phone] [phone] Encounter Details Date Type Department Care Team (Latest Contact Info) Description 09/24/2016 Orders Only [facility] CLINCONV Provider, MD Cinda [address] [place] [id number] Social History Tobacco Use Types Packs/Day Years Used Date Smoking Tobacco: Never Assessed Comments Unknown Sex and Gender Information Value Date Recorded Sex Assigned at Not on file Legal Sex Female 3:01 PM DRIVER EXAMINER Gender Identity Not on file Sexual Orientation Not on file documented as of this encounter Plan of Treatment Not on file documented as of this encounter Procedures Procedure Name Priority Date/Time Associated Diagnosis Comments PROCEDURE - RESULT 09/24/2016 12 :00 AM DRIVER EXAMINER documented in this encounter Results * PROCEDURE - RESULT (09/24/2016 12:00 AM DRIVER EXAMINER) Narrative 09/24/2016 12:00 AM DRIVER EXAMINER Ordered by an unspecified provider. Historical Provider Final Res ult documented in this encounter Visit Diagnoses Not on filedocumented in this encounter Additional Health Concerns Infection Onset Date Last Indicated Resolved Time MDR gram neg/ESBL Comment:Patients who received care at a healthcare facility outside of the [place] will be placed in Contact Precautions until infection or colonization with specific highly resistant bacteria can be ruled out. Infection Prevention will arrange screening. Please contact Infection Prevention. 06/28/24 travel and exposure question marked yes in error. Patient has not been hospitalized outside the [place] in the last 6 months per Nurse. ML 06/28/2024 06/28/2024 06/28/2024 8:[address] documented as of this encounter Care Teams Curator Of Manuscripts Relationship Specialty Start Date End Date Fernando Walker MD [address] [facility] [address] [place] [address] PCP - General 09/25/18 documented as of this encounter
--- OUTSIDE RECORDS SUMMARY | 2024-10-01 10:43 | XMS_ITS | Encounter Summary ---
Author Organization [facility] Care Team Providers Care China Painter Name Role Phone Fernando Walker MD Primary Care Provider [phone] Encounter Details Date Type Department Care Team (Latest Contact Info) Description 10/11/2016 Orders Only [facility] CLINCONV ProviderCinda MD [address] [place] [id number] Social History Tobacco Use Types Packs/Day Years Used Date Smoking Tobacco: Never Assessed Comments Unknown Sex and Gender Information Value Date Recorded Sex Assigned at Not on file Legal Sex Female 3:01 PM FILM PRINTER Gender Identity Not on file Sexual Orientation Not on file documented as of this encounter Plan of Treatment Not on file documented as of this encounter Procedures Procedure Name Priority Date/Time Associated Diagnosis Comments PROCEDURE - RESULT 10/12/2016 12 :00 AM CDT documented in this encounter Results * PROCEDURE - RESULT (10/12/2016 12:00 AM CDT) Narrative 10/12/2016 12:00 AM CDT Ordered by an unspecified provider. Historical Provider [...] documented as of this encounter Care Teams China Painter Relationship Specialty Start Date End Date Fernando Wlaker MD [address] [facility] [address] [place] [address] PCP - General 09/25/18 documented as of this encounter
== END 2024-10-01 09:35 | disposition home or self-care (01) ==
LOC: ANHSURGERY 09:39
PROVIDERS: Anesthesiology; PCP Family Medicine; Visit Provider Obstetrics & Gynecology
DX: Z79.899 Other long term (current) drug therapy (principal); I10 Essential (primary) hypertension
CPT/HCPCS: 36415; 80048